=== PATIENT | male | born 1960 | race Caucasian/White ===

== ENCOUNTER → 2017-01-21 | Day surgery (SDC) | payer BC ==
[2013-10-15 13:05] VITALS: BP 106/58
[~2017-01-21] MED LIST: ALBUTEROL2.5 MG/3 M IH; AZOR 5 MG-40 MG1 TAB; CIALIS20 MG PO; ED ZITHROM6 TAB/BOTT PO; HCTZ PO; INDOCIN25 MG PO; PREDNISONE10 M1 PO
== END ==
LOC: MSO 07:26
DX: Z12.11 Encounter for screening for malignant neoplasm of colon (principal); Z86.010 Personal history of colon polyps; K57.30 Diverticulosis of large intestine without perforation or abscess without bleeding; G47.33 Obstructive sleep apnea (adult) (pediatric); I10 Essential (primary) hypertension
CPT/HCPCS: 00810; J7120

== ENCOUNTER → 2023-03-07 | Outpatient (CLI) | payer BC | LOC: RAD 08:16 | DX: K76.0 Fatty (change of) liver, not elsewhere classified (principal) ==